=== PATIENT | female | born 1995 | race Caucasian/White ===

== ENCOUNTER 2018-08-19 20:03 | Emergency (ER) | payer OTHER ==
[2018-08-19 20:08] VITALS: BP 131/76
--- NOTE | 2018-08-19 20:46 | EDPHY ---
H & P Time Seen by Provider: 08/19/18 20:11 HPI/ROS: CHIEF COMPLAINT: Chin laceration HISTORY OF PRESENT ILLNESS: Patient is a 23-year-old female here with chin laceration after she tripped and fell in her chin. She does admit to being intoxicated this evening. She denies any loss consciousness or other associated injuries. She is not . She denies significant headache. She takes no prescribed medication. ROS As detailed in HPI Smoking Status: Never smoked Physical Exam: General: Alert and oriented. Nontoxic appearing. No acute distress HEENT: Pupils PERRLA. No oral lesions. No dental fractures. Normal dental alignment. Cardiopulmonary: Regular rate and rhythm. No lower extremity edema Skin: [place] warm and dry. 1 cm vertical laceration to the base of the chin. Muscle skeletal: Moving all 4 extremities. Equal strength in upper extremities and lower extremities. Ambulatory. Constitutional: Initial Vital Signs Temperature (C) 36.8 C 08/19/18 20:04 Heart Rate 110 H 08/19/18 20:04 Respiratory Rate 18 08/19/18 20:04 Blood Pressure 131/76 H 08/19/18 20:04 O2 Sat (%) 92 08/19/18 20:04 O2 Delivery Mode Room Air Allergies/Adverse Reactions: No Known Allergies Allergy (Unverified 08/19/18 20:08) Home Medications: Medication Instructions Recorded Adderall 10 MG (*) 08/19/18 Medical Decision Making Procedures: Procedure: Laceration repair. Verbal consent was obtained from the patient. The 1 cm laceration on the chin was anesthetized in the usual fashion. The wound was irrigated, draped and explored to its base. There were no deep structures involved. No tendon injury was identified. The wound was repaired with 6-0 nylon sutures. 2 sutures were placed The wound repair was well approximated. The procedure was performed by myself. ED Course/Re-evaluation: Laceration repair as detailed below. Patient tolerated the procedure well. There is no evidence of dental injury or mandible fracture. Indication for return were discussed. She will return in 5 days for suture removal. She was offered plastic surgery but she agree to treatment by myself. Departure - Departure Disposition: Home, Routine, Self-Care Clinical Impression: Chin laceration Condition: Good Instructions: Laceration (ED) Additional Instructions: Follow-up in 5 days for suture removal Referrals: NONE *PRIMARY CARE P,. [Primary Care Provider] - As per Instructions [facility],. [Clinic] - As per Instructions
== END 2018-08-19 20:57 | disposition home or self-care (01) ==
PROC: 0HQ1XZZ Repair Face Skin, External Approach (ICD-10-PCS; principal; 2018-08-19)
DX: S01.81XA Laceration without foreign body of other part of head, initial encounter (principal); W01.0XXA Fall on same level from slipping, tripping and stumbling without subsequent striking against object, initial encounter; Y92.9 Unspecified place or not applicable; Y93.9 Activity, unspecified; Y99.9 Unspecified external cause status